=== PATIENT | male | born 1980 | race Caucasian/White ===

== ENCOUNTER 2021-05-26 20:34 | Emergency (ER) | payer OTHER ==
[2021-05-26 21:08] LABS: HEMOGLOBIN 14.9 gm/dl (14.0-17.5); RED BLOOD COUNT 4.93 M/UL (4.20-5.50); WHITE BLOOD COUNT 10.7 K/UL (4.5-11.0)
[2021-05-26 21:40] LABS: BUN/CREATININE RATIO 14 (0-10)
== END 2021-05-26 23:48 | disposition left against medical advice (07) ==
LOC: ER1 20:34 → CDU 22:05 → ER1 23:48
PROVIDERS: Emergency Medicine
DX: R07.9 Chest pain, unspecified (principal); Z20.822 Contact with and (suspected) exposure to COVID-19; I11.0 Hypertensive heart disease with heart failure; I50.9 Heart failure, unspecified; E11.9 Type 2 diabetes mellitus without complications; F17.200 Nicotine dependence, unspecified, uncomplicated
CPT/HCPCS: 71045; 80053; 80307; 81001; 82550; 82553; 82962; 83690; 83880; 84484; 85025; 93005; 99285; U0002